=== PATIENT | male | born 1945 | race Caucasian/White ===

== ENCOUNTER → 2018-11-22 | Outpatient (CLI) | payer MEDICARE, BC | LOC: DL.CLIN 15:30 | DX: L08.9 Local infection of the skin and subcutaneous tissue, unspecified (principal) | CPT/HCPCS: 99212 ==

== ENCOUNTER 2019-07-22 02:10 | Emergency (ER) | payer MEDICARE, BC ==
[2019-07-22] MEDS ORDERED: Sodium Chloride 0.9% 10 ML Syringe FLUSH PRN (02:22)
[2019-07-22] MEDS ORDERED: Ondansetron 4 MG/2 ML SDV IV ONE (02:24)
[2019-07-22] MEDS ORDERED: Sodium Chloride 0.9% 1,000 ML IV ONE (02:50)
[2019-07-22 02:54] LABS: ANION GAP 16.1; CHLORIDE,CL 102 mmol/L (101-111); SODIUM,NA 134 mmol/L (135-145)
[2019-07-22] MEDS ORDERED: Metoclopramide 10 MG/2 ML SDV IVPUSH ONE (02:59)
--- NOTE | 2019-07-22 03:02 | EDM.PDOC ---
ED HPI GENERAL MEDICAL PROBLEM - General Chief Complaint: Abdominal Pain Stated Complaint: VERY SICK Time Seen by Provider: 07/22/19 02:25 Source of Information: Reports: Patient, Family, RN, RN Notes Reviewed History Limitations: Reports: No Limitations - History of Present Illness INITIAL COMMENTS - FREE TEXT/NARRATIVE: patient presents to ER with his with complaint of abdominal pain, nausea and vomiting. Patient denies any diarrhea. States last bowel movement was this morning and was normal for him. Patient denies any fever, but states when vomiting at home and became very cool, diaphoretic. Patient denies any chest pains or shortness of breath Patient states he had leftover hot dish for supper tonight, which was made yesterday. Patient denies any past medical health problems, states he has high cholesterol for which he takes a medication, and has had some joints replaced. Onset: Today, Sudden - Related Data Allergies Allergy/AdvReac Type Severity Reaction Status Date / Time No Known Allergies Allergy Verified 07/22/19 02:17 Home Meds: Home Meds Aspirin [Fabian Chewable] 81 mg PO DAILY 09/10/13 [History] Beta-Carotene(A) w/C & E/Zn/Cu [I-Belkis Protect] 1 drop EYEBOTH BEDTIME 09/10/13 [History] Ibuprofen [Advil] 800 mg PO Q6H PRN 09/10/13 [History] Omeprazole [priLOSEC OTC] 20 mg PO DAILY 09/10/13 [History] Fenofibrate,Micronized [Fenofibrate] 134 mg PO DAILY 07/22/19 [History] lisinopriL [Lisinopril] 10 mg PO DAILY 07/22/19 [History] Past Medical History Cardiovascular History: Reports: High Cholesterol, Hypertension Respiratory History: Reports: Sleep Apnea Musculoskeletal History: Reports: Back Pain, Chronic, Osteoarthritis - Past Surgical History Neurological Surgical History: Reports: Lumbar Spine Musculoskeletal Surgical History: Reports: Hip Replacement Other Musculoskeletal Surgeries/Procedures:: L) Social & Family History - Family History Family Medical History: Noncontributory - Tobacco Use Smoking Status *Q: Former Smoker Used Tobacco, but Quit: Yes Month/Year Tobacco Last Used: 07/2009 - Caffeine Use Caffeine Use: Reports: Coffee, Soda - Alcohol Use Days Per Week of Alcohol Use: 3 Number of Drinks Per Day: 5 Total Drinks Per Week: 15 - Recreational Drug Use Recreational Drug Use: No ED ROS GENERAL - Review of Systems Review Of Systems: Comprehensive ROS is negative, except as noted in HPI. ED EXAM, GI/ABD - Physical Exam Exam: See Below Exam Limited By: No Limitations General Appearance: Alert, WD/WN, Moderate Distress, Active Emesis Eyes: Bilateral: Normal Appearance, EOMI Ears: Normal External Exam, Hearing Grossly Normal Nose: Normal Inspection Throat/Mouth: Normal Inspection, Normal Voice, No Airway Compromise Head: Atraumatic, Normocephalic Neck: Normal Inspection, Supple, Non-Tender, Full Range of Motion Respiratory/Chest: No Respiratory Distress, No Accessory Muscle Use, Chest Non- Tender, Crackles (bases bilaterally) Cardiovascular: Normal Peripheral Pulses, Regular Rate, Rhythm, No Edema, No Gallop, No JVD, No Murmur, No Rub GI/Abdominal Exam: Soft, No Organomegaly, Tender (generalized), Abnormal Bowel Sounds (hypoactive) (Male) Exam: Deferred Rectal (Males) Exam: Deferred Back Exam: Normal Inspection, Full Range of Motion, NT Extremities: Normal Inspection, Normal Range of Motion, Non-Tender, Normal Capillary Refill, No Pedal Edema Neurological: Alert, Oriented, CN II-XII Intact, Normal Cognition, Normal Gait, Normal Reflexes, No Motor/Sensory Deficits Psychiatric: Normal Affect, Normal Mood Skin Exam: Intact, Normal Color, No Rash, Cool, Diaphoretic Lymphatic: No Adenopathy Course - Vital Signs Last Recorded V/S: Last Vital Signs Temp 97.1 F 07/22/19 02:23 Pulse 77 07/22/19 02:23 Resp 20 07/22/19 02:23 BP 103/55 L 07/22/19 02:23 Pulse Ox 94 L 07/22/19 02:23 - Orders/Labs/Meds Orders: Active Orders 24 hr Category Date Time Status EKG Documentation Completion [RC] STAT Care 07/22/19 02:23 Active Peripheral IV Care [RC] . DIRECTED Care 07/22/19 02:23 Active Abdomen Pelvis wo Cont [CT] Urgent Exams 07/22/19 03:01 Taken Chest 1V Frontal [CR] Stat Exams 07/22/19 02:23 Taken UA RFX BRITT AND CULT IF INDIC [URIN] Stat Lab 07/22/19 02:23 Ordered Sodium Chloride 0.9% [Saline Flush] Med 07/22/19 02:22 Active 10 ml FLUSH ASDIRECTED PRN NG [Nasogastric Orogastric Tube Insertion] [OM.PC] Ot 07/22/19 03:51 Ordered Routine Peripheral IV Insertion Adult [OM.PC] Stat Ot 07/22/19 02:22 Ordered Medication Orders Sodium Chloride (Saline Flush) 10 ml FLUSH ASDIRECTED PRN PRN Reason: Keep Vein Open Last Admin: 07/22/19 02:45 Dose: 10 ml Labs: Laboratory Tests 07/22/19 07/22/19 Range/Units 02:27 02:27 WBC 13.6 H (5.0-10.0) 10^3/uL RBC 4.67 (4.6-6.2) 10^6/uL Hgb 14.3 (14.0-18.0) g/dL Hct 43.5 (40.0-54.0) % MCV 93.1 (80-100) fL MCH 30.6 (27.0-34.0) pg MCHC 32.9 L (33.0-35.0) g/dL Plt Count 320 (150-450) 10^3/uL Neut % (Auto) 73.1 (42.2-75.2) % Lymph % (Auto) 19.5 L (20.5-50.1) % [place] % (Auto) 5.2 (2-8) % Eos % (Auto) 1.8 (1.0-3.0) % Baso % (Auto) 0.4 (0.0-1.0) % Sodium 134 L (135-145) mmol/L Potassium 4.1 (3.6-5.0) mmol/L Chloride 102 (101-111) mmol/L Carbon Dioxide 20.0 L (21.0-31.0) mmol/L Anion Gap 16.1 BUN 27 H (7-18) mg/dL Creatinine 1.7 H (0.6-1.3) mg/dL Est Cr Clr Drug Dosing 35.10 mL/min Estimated GFR (MDRD) 39 BUN/Creatinine Ratio 15.88 Glucose 174 H (74-105) mg/dL Calcium 10.6 H (8.4-10.2) mg/dl Total Bilirubin 0.6 (0.2-1.0) mg/dL AST 28 (10-42) IU/L ALT 22 (10-60) IU/L Alkaline Phosphatase 49 (42-121) IU/L Troponin I < 0.02 (0.00-0.02) ng/ml Total Protein 8.1 (6.7-8.2) g/dl Albumin 4.5 (3.2-5.5) g/dl Globulin 3.6 Albumin/Globulin Ratio 1.25 Meds: Medications Generic Name Dose Route Start Last Admin Trade Name Freq PRN Reason Stop Dose Admin Sodium Chloride 10 ml 07/22/19 02:22 07/22/19 02:45 Saline Flush FLUSH 10 ml ASDIRECTED PRN Administration Keep Vein Open Discontinued Medications Generic Name Dose Route Start Last Admin Trade Name Freq PRN Reason Stop Dose Admin Sodium Chloride 1,000 mls @ 999 mls/hr 07/22/19 02:50 07/22/19 03:01 Normal Saline IV 07/22/19 03:50 999 mls/hr .BOLUS ONE Administration Metoclopramide HCl 10 mg 07/22/19 02:59 07/22/19 03:03 Reglan IVPUSH 07/22/19 03:00 10 mg ONETIME ONE Administration Ondansetron HCl 4 mg 07/22/19 02:24 07/22/19 02:45 Zofran IV 07/22/19 02:25 4 mg ONETIME ONE Administration - Radiology Interpretation Free Text/Narrative:: chest x-ray: FINDINGS: Lungs: Low lung volumes, limiting assessment. Mild bibasilar atelectasis. Pleural space: Unremarkable. No pleural effusion. No pneumothorax. Heart/Mediastinum: Unremarkable. No cardiomegaly. Bones/joints: Unremarkable. Other findings: Again seen are surgical clips in the left upper quadrant. IMPRESSION: Low lung volumes, limiting assessment. Mild bibasilar atelectasis. Thank you for allowing us to participate in the care of your patient. Dictated and Authenticated by: Cricket Roland MD 07/22/2019 3:18 AM Central Time ([place] & [place]) CT abdomen/pelvis without contrast: FINDINGS: Lungs: Mild bibasilar atelectasis and fibrosis. Heart: Coronary artery calcified atherosclerosis. Mediastinum: Mild fluid distention of the distal esophagus. Liver: Normal. No mass. Gallbladder and bile ducts: The gallbladder is absent. Pancreas: Normal. No ductal dilation. Spleen: Normal. No splenomegaly. Adrenals: Normal. No mass. Kidneys and ureters: Normal. No hydronephrosis. Stomach and bowel: Status post gastrojejunostomy. There are multiple mild to moderately dilated loops of small bowel in the abdomen and pelvis measuring up to 4.0 cm in diameter with transition point in the ileum in the right lower quadrant on image 2:67. There is small bowel feces sign with the distal most dilated small bowel. Other possible short segment transition points more proximally on images 2:42 and 2:58 at the level of short segments of decompressed small bowel. Colonic diverticulosis without evidence of acute diverticulitis. Appendix: No evidence of appendicitis. Intraperitoneal space: Unremarkable. No free air. No significant fluid collection. Vasculature: The vasculature demonstrates mild atherosclerotic calcification. No abdominal aortic aneurysm. Lymph nodes: Unremarkable. No enlarged lymph nodes. Bladder: Unremarkable as visualized. Reproductive: Unremarkable as visualized. Bones/joints: Status post left total hip arthroplasty. Mild right hip degenerative arthritis. Multilevel chronic degenerative changes of the lower thoracic and lumbar spine. Status post laminectomies at L2 and L3. Grade 1 retrolisthesis of L1 on L2 and L2 on L3 and grade 1 anterolisthesis of L3 on L4. Soft tissues: There are small midline fat containing ventral hernias. IMPRESSION: 1. Status post gastrojejunostomy. Small bowel obstruction with multiple mild to moderately dilated loops of small bowel in the abdomen and pelvis and transition point in the ileum in the right lower quadrant, as above. Couple other possible short segment transition points more proximally, as above. 2. Colonic diverticulosis without evidence of acute diverticulitis. Thank you for allowing us to participate in the care of your patient. Dictated and Authenticated by: Cricket Roland MD 07/22/2019 3:46 AM Central Time ([place] & [place]) see radiologist's report - Re-Assessments/Exams Free Text/Narrative Re-Assessment/Exam: 07/22/19 04:01 Discussed patient case with Dr. Sorto who agreed to accept the patient for transfer to [facility]. Departure - Departure Time of Disposition: 04:02 Disposition: DC/Tfer to Acute Hospital 02 Condition: Fair Clinical Impression: Small bowel obstruction - Discharge Information *PRESCRIPTION DRUG MONITORING PROGRAM REVIEWED*: No *COPY OF PRESCRIPTION DRUG MONITORING REPORT IN PATIENT DENNISE: No Forms: ED Department Discharge, Interfacility Transfer [facility] Sepsis Event Note - Evaluation Sepsis Screening Result: No Definite Risk - Focused Exam Vital Signs: Vital Signs Temp Pulse Resp BP Pulse Ox 07/22/19 02:23 97.1 F 77 20 103/55 L 94 L Date Exam was Performed: 07/22/19 Time Exam was Performed: 04:01 - My Orders Last 24 Hours: My Active Orders 07/22/19 02:22 Sodium Chloride 0.9% [Saline Flush] 10 ml FLUSH ASDIRECTED PRN Peripheral IV Insertion Adult [OM.PC] Stat 07/22/19 02:23 EKG Documentation Completion [RC] STAT Peripheral IV Care [RC] . DIRECTED Chest 1V Frontal [CR] Stat UA RFX BRITT AND CULT IF INDIC [URIN] Stat 07/22/19 03:01 Abdomen Pelvis wo Cont [CT] Urgent 07/22/19 03:51 NG [Nasogastric Orogastric Tube Insertion] [OM.PC] Routine - Assessment/Plan Last 24 Hours: My Active Orders 07/22/19 02:22 Sodium Chloride 0.9% [Saline Flush] 10 ml FLUSH ASDIRECTED PRN Peripheral IV Insertion Adult [OM.PC] Stat 07/22/19 02:23 EKG Documentation Completion [RC] STAT Peripheral IV Care [RC] . DIRECTED Chest 1V Frontal [CR] Stat UA RFX BRITT AND CULT IF INDIC [URIN] Stat 07/22/19 03:01 Abdomen Pelvis wo Cont [CT] Urgent 07/22/19 03:51 NG [Nasogastric Orogastric Tube Insertion] [OM.PC] Routine
== END 2019-07-22 04:33 ==
LOC: DL.ED 02:10
DX: K56.609 Unspecified intestinal obstruction, unspecified as to partial versus complete obstruction (principal); I10 Essential (primary) hypertension; Z79.82 Long term (current) use of aspirin; Z79.899 Other long term (current) drug therapy; Z87.891 Personal history of nicotine dependence
CPT/HCPCS: 36415; 71045; 74176; 80053; 84484; 85025; 87804; 93005; 96361; 96374; 96375; 99284; 99285; J2405; J2765; J7030

== ENCOUNTER 2020-05-14 06:02 | Day surgery (SDC) | payer MEDICARE, BC ==
[2020-05-14] MEDS ORDERED: fentaNYL 100 MCG/2 ML SDV IV ONE ×3 (06:03→06:54)
[2020-05-14] MEDS ORDERED: Midazolam 1 MG/ML 2 ML SDV IV ONE ×7 (06:03→07:02)
[2020-05-14] MEDS ORDERED: fentaNYL 100 MCG/2 ML SDV ONE (06:18)
[2020-05-14] MEDS ORDERED: Midazolam 1 MG/ML 2 ML SDV ONE (06:18)
[2020-05-14] MEDS ORDERED: Dextrose 5%-0.45% NaCl 1,000 ML IV SCH (06:20)
--- NOTE | 2020-05-14 10:37 | OR ---
DATE: 05/14/2020 PREOPERATIVE DIAGNOSIS: Constipation. POSTOPERATIVE DIAGNOSIS: Constipation. PROCEDURE: Total colonoscopy with biopsy forceps removal of small right colon polyp. ANESTHESIA: Conscious sedation. SPECIMEN: Small polyp. OPERATIVE FINDINGS: Probable small diminutive polyp, right colon, some scattered diverticula throughout the colon. RECOMMENDATION: Followup colonoscopy is needed. PROCEDURE IN DETAIL: After adequate preparation, a colonoscope was inserted into the rectum. This was easily passed all the way to the cecum. Confirmation of the cecum was made by visualization of the ileocecal valve, the appendiceal opening, and palpation in the right lower quadrant. The bowel prep was excellent. On withdrawal of the scope, there appeared to be a small polyp on one of the haustra valves of the colon on the right side. This was small enough that it was able to be removed with a biopsy forceps, but I am not sure it was even much of a polyp, it just seemed raised. In any event, I took it off. The only other defect noted throughout the whole colon was scattered diverticula. These are not overly significant and are not confined just to the left side. Anal and rectal examinations are normal. Air was suctioned from the colon and the scope removed. [facility] /[id number]
== END 2020-05-14 08:45 | disposition home or self-care (01) ==
LOC: DL.ENDO 06:02
PROVIDERS: ATTEND Surgery
DX: D12.2 Benign neoplasm of ascending colon (principal); K59.00 Constipation, unspecified; K57.30 Diverticulosis of large intestine without perforation or abscess without bleeding; I10 Essential (primary) hypertension; Z79.899 Other long term (current) drug therapy; Z01.812 Encounter for preprocedural laboratory examination; Z20.828 Contact with and (suspected) exposure to other viral communicable diseases
CPT/HCPCS: 45380; J2250; J3010; J7042; U0002; 88305

== ENCOUNTER 2024-10-10 11:18 | Inpatient (IN) | payer MEDICARE ==
[2024-10-10] MEDS: Sodium Chloride 0.9% 1,000 ML IV ONE (11:46)
[2024-10-10 12:08] LABS: BASOPHILS PERCENT AUTO 0.4 % (0.0-1.0); EOSINOPHILS PERCENT AUTO 2.2 % (1.0-3.0); HEMATOCRIT 34.7 % (40.0-54.0); HEMOGLOBIN 11.1 g/dL (14.0-18.0); LYMPHOCYTES PERCENT AUTO 11.5 % (20.5-50.1); MEAN CORPUSCULAR HEMOGLOBIN 31.4 pg (27.0-34.0); MEAN CORPUSCULAR VOLUME 98.3 fL (80-100); MONOCYTES PERCENT AUTO 5.5 % (2-8); NEUTROPHILS PERCENT AUTO 80.4 % (42.2-75.2); PLATELET COUNT,PLT 315 10^3/uL (150-450); RED BLOOD CELL COUNT 3.53 10^6/uL (4.6-6.2); WHITE BLOOD CELL COUNT,WBC 11.2 10^3/uL (5.0-10.0)
[2024-10-10 12:22] LABS: ALBUMIN 3.4 g/dL (3.4-5.0); ANION GAP 19.8 mEq/L (7-13); BILIRUBIN TOTAL 0.2 mg/dL (0.2-1.0); BUN/CREATININE RATIO 17.5 (No establ ref range); CREATININE 1.83 mg/dL (0.70-1.30); EST CRCL DRUG DOSING (CG) 30.1 mL/min; POTASSIUM,K 4.8 mmol/L (3.5-5.1); PROTEIN TOTAL,TP 6.7 g/dL (6.4-8.2)
[2024-10-10 12:23] LABS: PROTHROMBIN TIME 10.7 SEC (9.0-12.0)
[2024-10-10] MEDS: Acetaminophen 500 MG Tab PO ONE (13:00)
[2024-10-10] MEDS: Ketorolac 30 MG/ML SDV IVPUSH ONE (13:01)
[2024-10-10] MEDS: fentaNYL 100 MCG/2 ML SDV IVPUSH ONE (13:40)
[2024-10-10] MEDS: Ondansetron 4 MG/2 ML SDV IVPUSH ONE (13:41)
[2024-10-10] MEDS ORDERED: Ondansetron 4 MG Tab.DIS PO PRN (15:37)
[2024-10-10] MEDS: Ibuprofen 400 MG Tab PO SCH (18:16)
[2024-10-10] MEDS: Omeprazole 20 MG Cap.CR PO SCH (21:48)
[2024-10-10] MEDS: Heparin Sodium 5,000 Units/ML Vial SUBCUT SCH (21:49)
[2024-10-11 06:11] LABS: ANION GAP 16.6 mEq/L (7-13); CALCIUM 8.9 mg/dL (8.5-10.1); CREATININE 1.61 mg/dL (0.70-1.30); EST CRCL DRUG DOSING (CG) 34.21 mL/min; POTASSIUM,K 4.6 mmol/L (3.5-5.1)
[2024-10-11] MEDS: Lisinopril 10 MG Tab PO SCH (08:13)
[2024-10-11] MEDS: Aspirin 81 MG Tab.Chew PO SCH (08:13)
[2024-10-11] MEDS ORDERED: Omeprazole 20 MG Cap.CR PO SCH (09:00)
[2024-10-11] MEDS: oxyCODONE 5 MG Tab PO PRN (11:45)
[2024-10-11] MEDS: Acetaminophen 325 MG Tab PO SCH (13:17)
[2024-10-11] MEDS: Sodium Chloride 0.9% 10 ML Syringe FLUSH PRN (21:43)
[2024-10-12 06:23] LABS: BASOPHILS PERCENT AUTO 0.5 % (0.0-1.0); EOSINOPHILS PERCENT AUTO 5.3 % (1.0-3.0); HEMATOCRIT 31.4 % (40.0-54.0); LYMPHOCYTES PERCENT AUTO 21.4 % (20.5-50.1); MEAN CORPUSCULAR HEMOGLOBIN 31.5 pg (27.0-34.0); MEAN CORPUSCULAR HGB CONC 31.8 g/dL (33.0-35.0); MEAN CORPUSCULAR VOLUME 99.1 fL (80-100); MONOCYTES PERCENT AUTO 10.1 % (2-8); NEUTROPHILS PERCENT AUTO 62.7 % (42.2-75.2); PLATELET COUNT,PLT 277 10^3/uL (150-450); RED BLOOD CELL COUNT 3.17 10^6/uL (4.6-6.2); WHITE BLOOD CELL COUNT,WBC 7.6 10^3/uL (5.0-10.0)
[2024-10-12 06:37] LABS: ANION GAP 12.6 mEq/L (7-13); CALCIUM 8.9 mg/dL (8.5-10.1); CREATININE 1.44 mg/dL (0.70-1.30); EST CRCL DRUG DOSING (CG) 38.25 mL/min; POTASSIUM,K 4.6 mmol/L (3.5-5.1)
[2024-10-12] MEDS: Docusate Sodium 100 MG Cap PO SCH (11:38)
[2024-10-12] MEDS: Psyllium Husk Powder (4 in 1) 3.4 GM Packet PO SCH (11:39)
== END 2024-10-13 09:50 | disposition home or self-care (01) | DRG 536 ==
LOC: DL.ED 11:18 → DL.MS 13:45
PROVIDERS: ADMIT Internal Medicine; ATTEND Internal Medicine
PROC: 0HQGXZZ Repair Left Hand Skin, External Approach (ICD-10-PCS; principal; 2024-10-10)
DX: S72.145A Nondisplaced intertrochanteric fracture of left femur, initial encounter for closed fracture (principal); Z68.30 Body mass index [BMI] 30.0-30.9, adult; S61.412A Laceration without foreign body of left hand, initial encounter; E78.00 Pure hypercholesterolemia, unspecified; I10 Essential (primary) hypertension; Z79.899 Other long term (current) drug therapy; G47.30 Sleep apnea, unspecified; W01.0XXA Fall on same level from slipping, tripping and stumbling without subsequent striking against object, initial encounter; M54.9 Dorsalgia, unspecified; K21.9 Gastro-esophageal reflux disease without esophagitis; E66.9 Obesity, unspecified; G89.29 Other chronic pain; M19.90 Unspecified osteoarthritis, unspecified site; Z85.828 Personal history of other malignant neoplasm of skin; Z90.49 Acquired absence of other specified parts of digestive tract; Z98.890 Other specified postprocedural states; Z79.82 Long term (current) use of aspirin; Z96.642 Presence of left artificial hip joint
CPT/HCPCS: 12001; 36415; 72192; 80048; 80053; 80143; 85025; 85610; 96374; 99222; 99232; 99239; 99284; 99284-25; A9270-GY; J1644; J1885; J7030